=== PATIENT | female | born 1965 | race Caucasian/White ===

== ENCOUNTER 2016-11-17 06:20 | Emergency (ER) | payer OTHER ==
[~2016-11-17] VITALS: Ht 165.1 cm; Wt 86.2 kg
[~2016-11-17 06:20] MED LIST: ASPI81CT89 PO; CALC0.254 PO; GABA300C PO; [UNRECOGNIZED DRUG - CODE] PO; [UNRECOGNIZED DRUG - CODE] PO
[2016-11-17 06:27] VITALS: BP 149/89
--- NOTE | 2016-11-17 06:36 | NUR ---
TO ER BED 7
--- NOTE | 2016-11-17 06:37 | NUR ---
Patient being evaluated by physician at bedside.
[2016-11-17] MEDS ORDERED: METHOCARBAMOL 500 MG TAB PO ONE (06:40)
[2016-11-17] MEDS ORDERED: KETOROLAC 30 MG/ML VIAL IM ONE (06:40)
--- NOTE | 2016-11-17 06:43 | NUR ---
PT IS 51/F BIB FAMILY TO ED WITH C/O RIGHT SHOULDER PAIN 10/ PT STATES MED HX: THYROID REMOVED 2009, HX OF 4 STROKES. DENIES N/V/D; SKIN IS PINK/WARM/DRY; AAOX4 WITH EVEN AND STEADY GAIT; LUNGS CLEAR BL; HR EVEN AND REGULAR; PT DENIES ANY FEVER, CP, SOB, OR COUGH AT THIS TIME; PATIENT STATES PAIN OF 10/10 AT THIS TIME; VSS; PATIENT POSITIONED FOR COMFORT; HOB ELEVATED; BEDRAILS UP X2; BED DOWN. ER MD MADE AWARE OF PT STATUS.
--- NOTE | 2016-11-17 07:13 | NUR ---
ENDORSED REPORT TO EVE BATES FOR TRANSFER OF CARE.
--- NOTE | 2016-11-17 07:15 | NUR ---
Pt found returning from x-ray. Pt placed back into bed 7. Patient states that they performed an x-ray to her shoulder and neck but the pain was in her right hand/wrist. Dr. Sifuentes made aware.
--- NOTE | 2016-11-17 07:23 | NUR ---
Dr. Sifuentes evaluating patient at bedside.
--- NOTE | 2016-11-17 07:36 | NUR ---
X-Ray at bedside.
--- NOTE | 2016-11-17 07:55 | NUR ---
[facility] EXPLAINED XR RESULTS TO PATIENT
[2016-11-17 08:05] VITALS: BP 129/82
--- NOTE | 2016-11-17 08:05 | NUR ---
Chart checked and completed. The patient's care was reviewed and supervised by Margo Mena RN.
--- NOTE | 2016-11-17 08:05 | NUR ---
Patient discharged with v/s stable. Written and verbal after care instructions given and explained. Patient alert, oriented and verbalized understanding of instructions. Ambulatory with steady gait. All questions addressed prior to discharge. ID band removed. Patient advised to follow up with PMD. Rx of MOTRIN,ROBAXIN given. Patient educated on indication of medication including possible reaction and side effects. Opportunity to ask questions provided and answered.
== END 2016-11-17 08:05 | disposition home or self-care (01) ==
LOC: MED 06:20
DX: G89.29 Other chronic pain (principal); M25.511 Pain in right shoulder; M25.531 Pain in right wrist; I10 Essential (primary) hypertension; Z86.73 Personal history of transient ischemic attack (TIA), and cerebral infarction without residual deficits; Z85.850 Personal history of malignant neoplasm of thyroid; Z79.82 Long term (current) use of aspirin; Z79.899 Other long term (current) drug therapy
CPT/HCPCS: 71010; 72040; 73030; 73100; 93005; 96372; 99284; J1885; Q0092

== ENCOUNTER 2018-12-10 00:34 | Emergency (ER) | payer OTHER ==
[~2018-12-10] VITALS: Ht 165.1 cm; Wt 87.1 kg
[~2018-12-10 00:34] MED LIST changes: +ASPI-1718 PO; -ASPI81CT89 PO; +CALC0.2527 PO; -CALC0.254 PO; +LEVO0.1218 PO; -[UNRECOGNIZED DRUG - CODE] PO
[2018-12-10 00:38] VITALS: BP 151/97
--- NOTE | 2018-12-10 00:52 | NUR ---
PT TAKEN TO BED 3
--- NOTE | 2018-12-10 00:56 | NUR ---
PT C/O CELLULITIS BEHIND L EAR AND HEAD. PT STATED THAT SHE WENT TO HER PCP AND HE TOLD HER TO COME TO ER DUE TO HAVING A MASTIODITIS. PT STATES SHE FELL LAST WEEK AND HIT HER HEAD, PT STATED NO LOC. ON EXAM PT HAS ERYTHMATIC ON L EAR. 9/10 STINGING PAIN, CONTINUOUS, L EAR. HX-4 STROKES, THYROID CANCER
[2018-12-10 01:41] LABS: BARBITURATE, URINE NEG. ng/ml (NEG <=200); BENZODIAZEPINE, URINE NEG. ng/mL (NEG <=200); CANNABINOID, URINE NEG. ng/mL (NEG <=50); COCAINE, URINE NEG. ng/mL (NEG <=300); OPIATE, URINE NEG. ng/mL (NEG <=2000); PHENCYCLIDINE SCREEN,URINE NEG. ng/mL (NEG <=25)
--- NOTE | 2018-12-10 01:45 | NUR ---
Pt awake and alert. Family at bedside. Bed in lowest postion. Will continue to monitor.
[2018-12-10 02:11] VITALS: BP 151/97
--- NOTE | 2018-12-10 02:11 | NUR ---
Patient discharged with v/s stable. Written and verbal after care instructions given and explained. Patient alert, oriented and verbalized understanding of instructions. Ambulatory with to car. All questions addressed prior to discharge. ID band removed. Patient advised to follow up with PMD. Rx of IBUPROFEN WAS given. Patient educated on indication of medication including possible reaction and side effects. Opportunity to ask questions provided and answered.
== END 2018-12-10 02:11 | disposition home or self-care (01) ==
LOC: MED 00:34
DX: H92.02 Otalgia, left ear (principal); I10 Essential (primary) hypertension; Z86.73 Personal history of transient ischemic attack (TIA), and cerebral infarction without residual deficits; Z85.850 Personal history of malignant neoplasm of thyroid; Z79.82 Long term (current) use of aspirin; Z79.899 Other long term (current) drug therapy
CPT/HCPCS: 70450; 80305; 81002; 81025; 99284